=== PATIENT | female | born 1980 | race American Indian/Alaskan Native ===

== ENCOUNTER 2021-03-02 03:35 | Emergency (ER) | payer SELFPAY ==
[2021-03-02] MEDS ORDERED: LIDOCAINE 1%/EPINEPHRINE 1:100,000 VIAL (20 ML) INFILTRATI NR (03:45)
--- NOTE | 2021-03-02 03:57 | Emergency Department Report ---
ED General Adult HPI - General Chief complaint: Laceration/Recheck/Suture Stated complaint: LACERATION Time Seen by Provider: 03/02/21 03:43 Source: patient Mode of arrival: Ambulatory Limitations: No Limitations - History of Present Illness Initial comments: 40-year-old -[place] female patient presents with lacerations to the right arm tonight. Patient states she slipped and fell and her arm was cut on a broken window. She is unsure of her last tetanus vaccination. No known drug allergies per patient. She denies any numbness tingling or difficulty moving her arm -: Sudden - Related Data Previous Rx's Medication Instructions Recorded Last Taken Type Ibuprofen [Motrin 800 MG tab] 800 mg PO Q8HR PRN #20 tablet 03/02/21 Unknown Rx Mupirocin [Bactroban 2% OINT] 1 applic TP TID 10 Days #1 tube 03/02/21 Unknown Rx cephALEXin [Keflex] 500 mg PO Q12HR 5 Days #10 cap 03/02/21 Unknown Rx traMADoL [Ultram 50 MG tab] 50 mg PO Q6HR PRN #8 tablet 03/02/21 Unknown Rx Allergies Allergy/AdvReac Type Severity Reaction Status Date / Time No Known Allergies Allergy Verified 03/02/21 03:52 ED Review of Systems ROS: Stated complaint: LACERATION Other details as noted in HPI Musculoskeletal: denies: joint swelling, arthralgia Skin: denies: change in color Neurological: denies: numbness, paresthesias ED Past Medical Hx - Past Medical History Previous Medical History?: No - Surgical History Past Surgical History?: No - Medications Home Medications: Home Medications Medication Instructions Recorded Confirmed Last Taken Type Ibuprofen [Motrin 800 MG tab] 800 mg PO Q8HR PRN #20 tablet 03/02/21 Unknown Rx Mupirocin [Bactroban 2% OINT] 1 applic TP TID 10 Days #1 tube 03/02/21 Unknown Rx cephALEXin [Keflex] 500 mg PO Q12HR 5 Days #10 cap 03/02/21 Unknown Rx traMADoL [Ultram 50 MG tab] 50 mg PO Q6HR PRN #8 tablet 03/02/21 Unknown Rx ED Physical Exam - General Limitations: No Limitations General appearance: alert, in no apparent distress, obese - Head Head exam: Present: atraumatic, normocephalic - Eye Eye exam: Present: normal appearance - Respiratory Respiratory exam: Absent: respiratory distress - Cardiovascular Cardiovascular Exam: Present: regular rate - Neurological Exam Neurological exam: Present: alert, oriented X3 - Psychiatric Psychiatric exam: Present: normal affect, normal mood - Skin Skin exam: Present: warm, dry, normal color, other (Approximately 8 cm laceration noted to right upper forearm with adjacent 3 cm laceration noted just over the elbow; no obvious foreign bodies noted). Absent: rash ED Course Vital Signs 03/02/21 03:51 Temperature 97.7 F Pulse Rate 99 H Respiratory 18 Rate Blood Pressure 164/104 [Right] O2 Sat by Pulse 98 Oximetry - Laceration /Wound Repair Arm Wound Location: upper extremity Wound Length (cm): 8 (Second laceration 3 cm) Wound's Depth, Shape: linear, irregular Irrigated w/ Saline (ccs): 100 Betadine Prep?: Yes Anesthesia: 1% Lidocaine Wound Repaired With: sutures Suture Size/Type: 3:0 (After line) Number of Sutures: 25 (15 continuous sutures placed in 8 cm wound, 9 simple interrupted sutures placed then 3 cm wound) Layer Closure?: No Sterile Dressing Applied?: Yes Progress: Mild bleeding occurred. Patient tolerated procedure well without any immediate complications. No bony tenderness noted; she has normal range of motion of the elbow and radial and ulnar pulses post procedure ED Medical Decision Making - Radiology Data Radiology results: report reviewed cc: CARIDAD PERKINS Fluoro Time In Minutes: Right forearm 3 views INDICATION: Laceration FINDINGS: Soft tissue injury. No acute fractures seen. - Medical Decision Making Wound care discussed in detail with patient along with strict return precautions, she verbalized understanding. Patient to return to the ED in 12 days for suture removal Critical care attestation.: If time is entered above; I have spent that time in minutes in the direct care of this critically ill patient, excluding procedure time. ED Disposition Clinical Impression: Lacerations of multiple sites of right arm Disposition: 01 HOME / SELF CARE / HOMELESS Is pt being admited?: No Condition: Stable Instructions: Sutured Wound Care, [id number] Additional Instructions: Return to the emergency department in 12 days for suture removal Prescriptions: Mupirocin [Bactroban 2% OINT] 1 applic TP TID 10 Days #1 tube cephALEXin [Keflex] 500 mg PO Q12HR 5 Days #10 cap Ibuprofen [Motrin 800 MG tab] 800 mg PO Q8HR PRN #20 tablet PRN Reason: Pain, Moderate (4-6) traMADoL [Ultram 50 MG tab] 50 mg PO Q6HR PRN #8 tablet PRN Reason: Pain , Severe (7-10) Forms: Work/School Release Form(ED)
--- NOTE | 2021-03-02 04:21 | XRay Report ---
Right forearm 3 views INDICATION: Laceration FINDINGS: Soft tissue injury. No acute fractures seen. Signer Name: Patel Auguste MD Signed: 03/02/2021 4:16 AM Workstation Name: [id number]
[2021-03-02] MEDS ORDERED: oxyCODONE /ACETAMINOPHEN 5-325MG TAB PO ONE (04:44)
[2021-03-02 06:25] VITALS: BP 122/80
== END 2021-03-02 06:14 | disposition home or self-care (01) ==
LOC: ED 03:35
DX: S41.111A Laceration without foreign body of right upper arm, initial encounter (principal); W25.XXXA Contact with sharp glass, initial encounter; Y93.89 Activity, other specified; Y92.89 Other specified places as the place of occurrence of the external cause; Y99.8 Other external cause status
CPT/HCPCS: 99283